=== PATIENT | female | born 1945 | race American Indian/Alaskan Native ===

== ENCOUNTER 2019-02-05 09:40 | Emergency (ER) | payer MEDICARE ==
[2019-02-05] MEDS ORDERED: NACL 0.9% 1000 ML 1,000 ML IV ONE (11:44)
[2019-02-05 12:10] LABS: Basophils # (Auto) 0.1 K/mm3 (0.0-0.1); Basophils % (Auto) 0.8 % (0.0-1.8); Eosinophils % (Auto) 0.2 % (0.0-4.3); Hematocrit 39.7 % (30.3-42.9); Hemoglobin 13.5 gm/dl (10.1-14.3); Lymphocytes # (Auto) 1.5 K/mm3 (1.2-5.4); Mean Corpuscular HGB Conc 34 % (30-34); Mean Corpuscular Volume 91 fl (79-97); Monocytes % (Auto) 14.6 % (0.0-7.3); Platelet Count 175 K/mm3 (140-440); Red Blood Count 4.35 M/mm3 (3.65-5.03); Red Cell Distribution Width 14.4 % (13.2-15.2)
[2019-02-05 12:24] LABS: INR 1.09 (0.87-1.13)
[2019-02-05 12:35] LABS: Creatine Kinase MB 1.5 ng/mL (0.0-4.0)
--- NOTE | 2019-02-05 12:40 | Emergency Department Report ---
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 Decreased appetite reported. Patient denies pain, dysuria, cough or cold symptoms, or fever. Recent difficulty holding her urine reported.. Patient presents with low blood pressure. Patient typically takes her blood pressure medicine at 10 AM every morning and did not have a dose prior to arrival. She denies cardiac history other than a heart murmur. Her doctors are [facility] affiliated. Severity scale (0 -10): 0 - Related Data Previous Rx's Medication Instructions Recorded Last Taken Type Nitrofurantoin [place]/M-Cryst 100 mg PO Q12HR #14 capsule 02/05/19 Unknown Rx [Macrobid CAP] Allergies Allergy/AdvReac Type Severity Reaction Status Date / Time Penicillins Allergy Unknown Verified 02/05/19 09:43 ED Review of Systems ROS: Stated complaint: WEAKNESS Other details as noted in HPI Comment: All other systems reviewed and negative ED Past Medical Hx - Past Medical History Previous Medical History?: Yes Hx Hypertension: Yes Hx CVA: Yes - Social History Smoking Status: Current Every Day Smoker Substance Use Type: None - Medications Home Medications: Home Medications Medication Instructions Recorded Confirmed Last Taken Type Nitrofurantoin [place]/M-Cryst 100 mg PO Q12HR #14 capsule 02/05/19 Unknown Rx [Macrobid CAP] ED Physical Exam - General Limitations: No Limitations - Other Other exam information: General: No limitations, patient is alert in no acute distress Head exam: Atraumatic, normocephalic Eyes exam: Normal appearance, pupils equal reactive to light, extraocular movements intact ENT: Moist mucous membrane Neck exam: Normal inspection, full range of motion, no meningismus nontender Respiratory exam: Clear to auscultation bilateral, no wheezes, rales, crackles Cardiovascular: Normal rate and rhythm Abdomen: Soft, nondistended, and nontender, with normal bowel sounds, no rebound, or guarding Extremity: Full range of motion normal inspection no deformity Back: Normal Inspection, full range of motion, no tenderness Neurologic: Alert, oriented x3, cranial nerves intact, no motor or sensory deficit, [id number] function intact Psychiatric: normal affect, normal mood Skin: Warm, dry, intact ED Course Vital Signs 02/05/19 02/05/19 10:30 14:14 Temperature 99.9 F H Pulse Rate 88 84 Respiratory 20 Rate Blood Pressure 91/60 Blood Pressure 123/60 [Right] O2 Sat by Pulse 96 Oximetry ED Medical Decision Making - Lab Data Result diagrams: 02/05/19 11:52 02/05/19 11:52 Lab Results 02/05/19 02/05/19 02/05/19 Range/Units 11:52 11:52 11:52 WBC 6.9 (4.5-11.0) K/mm3 RBC 4.35 (3.65-5.03) M/mm3 Hgb 13.5 (10.1-14.3) gm/dl Hct 39.7 (30.3-42.9) % MCV 91 (79-97) fl MCH 31 (28-32) pg MCHC 34 (30-34) % RDW 14.4 (13.2-15.2) % Plt Count 175 (140-440) K/mm3 Lymph % (Auto) 21.0 (13.4-35.0) % [place] % (Auto) 14.6 H (0.0-7.3) % Eos % (Auto) 0.2 (0.0-4.3) % Baso % (Auto) 0.8 (0.0-1.8) % Lymph # 1.5 (1.2-5.4) K/mm3 [place] # 1.0 H (0.0-0.8) K/mm3 Eos # 0.0 (0.0-0.4) K/mm3 Baso # 0.1 (0.0-0.1) K/mm3 Seg Neutrophils % 63.4 (40.0-70.0) % Seg Neutrophils # 4.4 (1.8-7.7) K/mm3 PT 14.8 (12.2-14.9) Sec. INR 1.09 (0.87-1.13) Sodium 135 L (137-145) mmol/L Potassium 3.7 (3.6-5.0) mmol/L Chloride 95.2 L (98-107) mmol/L Carbon Dioxide 25 (22-30) mmol/L Anion Gap 19 mmol/L BUN 12 (7-17) mg/dL Creatinine 0.6 L (0.7-1.2) mg/dL Estimated GFR > 60 ml/min BUN/Creatinine Ratio 20 % Glucose 93 (65-100) mg/dL Calcium 8.7 (8.4-10.2) mg/dL Magnesium 2.30 (1.7-2.3) mg/dL Total Bilirubin 0.70 (0.1-1.2) mg/dL AST 92 H (5-40) units/L ALT 69 H (7-56) units/L Alkaline Phosphatase 57 (35-129) units/L Total Creatine Kinase 238 H (30-135) units/L CK-MB (CK-2) 1.5 (0.0-4.0) ng/mL CK-MB (CK-2) Rel Index 0.6 (0-4) Troponin T < 0.010 (0.00-0.029) ng/mL Total Protein 7.1 (6.3-8.2) g/dL Albumin 3.6 L (3.9-5) g/dL Albumin/Globulin Ratio 1.0 % TSH (0.270-4.200) mlU/mL Free T4 (0.76-1.46) ng/dL Urine Color (Yellow) Urine Turbidity (Clear) Urine pH (5.0-7.0) Ur Specific [place] (1.003-1.030) Urine Protein (Negative) mg/dL Urine Glucose (UA) (Negative) mg/dL Urine Ketones (Negative) mg/dL Urine Blood (Negative) Urine Nitrite (Negative) Urine Bilirubin (Negative) Urine Urobilinogen (<2.0) mg/dL Ur Leukocyte Esterase (Negative) Urine WBC (Auto) (0.0-6.0) /HPF Urine RBC (Auto) (0.0-6.0) /HPF Urine Bacteria (Auto) (Negative) /HPF Urine Mucus /HPF 02/05/19 02/05/19 Range/Units 11:52 14:10 WBC (4.5-11.0) K/mm3 RBC (3.65-5.03) M/mm3 Hgb (10.1-14.3) gm/dl Hct (30.3-42.9) % MCV (79-97) fl MCH (28-32) pg MCHC (30-34) % RDW (13.2-15.2) % Plt Count (140-440) K/mm3 Lymph % (Auto) (13.4-35.0) % [place] % (Auto) (0.0-7.3) % Eos % (Auto) (0.0-4.3) % Baso % (Auto) (0.0-1.8) % Lymph # (1.2-5.4) K/mm3 [place] # (0.0-0.8) K/mm3 Eos # (0.0-0.4) K/mm3 Baso # (0.0-0.1) K/mm3 Seg Neutrophils % (40.0-70.0) % Seg Neutrophils # (1.8-7.7) K/mm3 PT (12.2-14.9) Sec. INR (0.87-1.13) Sodium (137-145) mmol/L Potassium (3.6-5.0) mmol/L Chloride (98-107) mmol/L Carbon Dioxide (22-30) mmol/L Anion Gap mmol/L BUN (7-17) mg/dL Creatinine (0.7-1.2) mg/dL Estimated GFR ml/min BUN/Creatinine Ratio % Glucose (65-100) mg/dL Calcium (8.4-10.2) mg/dL Magnesium (1.7-2.3) mg/dL Total Bilirubin (0.1-1.2) mg/dL AST (5-40) units/L ALT (7-56) units/L Alkaline Phosphatase (35-129) units/L Total Creatine Kinase (30-135) units/L CK-MB (CK-2) (0.0-4.0) ng/mL CK-MB (CK-2) Rel Index (0-4) Troponin T (0.00-0.029) ng/mL Total Protein (6.3-8.2) g/dL Albumin (3.9-5) g/dL Albumin/Globulin Ratio % TSH 0.956 (0.270-4.200) mlU/mL Free T4 1.31 (0.76-1.46) ng/dL Urine Color Yellow (Yellow) Urine Turbidity Slightly-cloudy (Clear) Urine pH 5.0 (5.0-7.0) Ur Specific [place] 1.013 (1.003-1.030) Urine Protein 30 mg/dl (Negative) mg/dL Urine Glucose (UA) Neg (Negative) mg/dL Urine Ketones Tr (Negative) mg/dL Urine Blood Mod (Negative) Urine Nitrite Pos (Negative) Urine Bilirubin Neg (Negative) Urine Urobilinogen 2.0 (<2.0) mg/dL Ur Leukocyte Esterase Sm (Negative) Urine WBC (Auto) 51.0 H (0.0-6.0) /HPF Urine RBC (Auto) 8.0 (0.0-6.0) /HPF Urine Bacteria (Auto) 4+ (Negative) /HPF Urine Mucus 3+ /HPF - EKG Data -: EKG Interpreted by Me EKG shows normal: sinus rhythm, axis (qrs 22), QRS complexes (qrsd 99), ST-T waves (no stemi/t inv) Rate: normal - Medical Decision Making Patient has a nonfocal neurologic exam. Patient has a UTI without signs of significant leukocytosis. Patient also reports decreased by mouth intake which might also be contributing to low blood pressure was corrected with 1 L normal saline. Patient feels better with each treatment. Received IV Levaquin in the ED. Will be discharged home on antibiotics and pending urine cultures. Patient able to ambulate in the ED - Differential Diagnosis UTI, thyroid, dehydration, infection, CVA Critical Care Time: No Critical care attestation.: If time is entered above; I have spent that time in minutes in the direct care of this critically ill patient, excluding procedure time. ED Disposition Clinical Impression: UTI (urinary tract infection), Weakness generalized Disposition: DC-01 TO HOME OR SELFCARE Is pt being admited?: No Does the pt Need Aspirin: No Condition: Stable Instructions: Urinary Tract Infection in Women (ED) Additional Instructions: Take the medication as prescribed. Follow up with your doctor or the clinic/doctor provided. Return if symptoms worsen as indicated by your discharge instructions Prescriptions: Nitrofurantoin [place]/M-Cryst [Macrobid CAP] 100 mg PO Q12HR #14 capsule Referrals: [facility] MD PATRICIO [Primary Care Provider] - 2-3 Days Time of Disposition: 16:27
[2019-02-05 12:42] LABS: Alanine Aminotransferase 69 units/L (7-56); Albumin 3.6 g/dL (3.9-5); BUN/Creatinine Ratio 20; Blood Urea Nitrogen 12 mg/dL (7-17); Calcium 8.7 mg/dL (8.4-10.2); Hemolysis Index 38
[2019-02-05 12:45] LABS: Free T4 (Free Thyroxine) 1.31 ng/dL (0.76-1.46)
[2019-02-05 14:41] LABS: Bacteria,Urine 4+ /HPF (Negative); Bilirubin,Urine NEG (Negative); Blood,Urine MOD (Negative); Color,Urine Yellow (Yellow); Mucus,Urine 3+ /HPF
[2019-02-05] MEDS ORDERED: LEVAQUIN 750MG/150ML 750 MG/150 ML BAG IV ONE (14:45)
[2019-02-05 16:53] VITALS: BP 135/61
== END 2019-02-05 16:55 | disposition home or self-care (01) ==
LOC: ED 09:40
DX: N39.0 Urinary tract infection, site not specified (principal)
CPT/HCPCS: 36415; 80053; 81001; 82550; 82553; 83735; 84439; 84443; 84484; 85025; 85610; 87086; 93005; 93010; 96365; 96366; 99284; J1956; J7030

== ENCOUNTER 2022-08-20 08:58 | Emergency (ER) | payer MEDICARE ==
--- NOTE | 2022-08-20 15:32 | Emergency Department Report ---
ED Female HPI - General Chief complaint: Urogenital-Female Stated complaint: HEMATURIA Time Seen by Provider: 08/20/22 15:28 Source: patient, EMS Mode of arrival: Stretcher Limitations: Physical Limitation - History of Present Illness Initial comments: Patient is a 77-year-old female presenting to ED with complaint of hematuria that she noticed this morning. Reports intermittent lower abdominal pain which is now resolved. She denies any fever, chills, vaginal bleeding or dysuria. She is not on blood thinners. Takes daily aspirin. - Related Data Previous Rx's Medication Instructions Recorded Last Taken Type Nitrofurantoin [place]/M-Cryst 100 mg PO Q12HR #14 capsule 02/05/19 Unknown Rx [Macrobid CAP] Allergies Allergy/AdvReac Type Severity Reaction Status Date / Time Penicillins Allergy Unknown Verified 08/20/22 09:02 ED Review of Systems ROS: Stated complaint: HEMATURIA Other details as noted in HPI Constitutional: denies: chills, fever Respiratory: denies: cough, shortness of breath, wheezing Cardiovascular: denies: chest pain, palpitations Gastrointestinal: denies: abdominal pain, nausea, diarrhea Genitourinary: hematuria. denies: dysuria, frequency, discharge Musculoskeletal: denies: back pain, joint swelling, arthralgia Skin: denies: rash, lesions Neurological: denies: headache, weakness, paresthesias Psychiatric: denies: anxiety, depression ED Past Medical Hx - Past Medical History Previous Medical History?: Yes Hx Hypertension: Yes Hx CVA: Yes - Social History Smoking Status: Current Every Day Smoker Substance Use Type: None - Medications Home Medications: Home Medications Medication Instructions Recorded Confirmed Last Taken Type Nitrofurantoin [place]/M-Cryst 100 mg PO Q12HR #14 capsule 02/05/19 Unknown Rx [Macrobid CAP] ED Physical Exam - General Limitations: Physical Limitation General appearance: alert, in no apparent distress - Head Head exam: Present: atraumatic, normocephalic - Respiratory Respiratory exam: Present: normal lung sounds bilaterally. Absent: respiratory distress - Cardiovascular Cardiovascular Exam: Present: regular rate, normal rhythm, normal heart sounds - GI/Abdominal GI/Abdominal exam: Present: soft. Absent: distended, tenderness - Rectal Rectal exam: Present: deferred - Extremities Exam Extremities exam: Present: normal inspection. Absent: tenderness - Neurological Exam Neurological exam: Present: alert, oriented X3 - Psychiatric Psychiatric exam: Present: normal affect, normal mood - Skin Skin exam: Present: warm, dry, intact, normal color ED Course Vital Signs 08/20/22 08/20/22 08/20/22 09:02 11:33 11:45 Temperature 98 F 98.4 F Pulse Rate 75 71 68 Respiratory 14 11 L 17 Rate Blood Pressure 134/75 126/84 Blood Pressure 135/75 [Left] O2 Sat by Pulse 99 97 99 Oximetry 08/20/22 08/20/22 08/20/22 12:00 12:16 12:30 Temperature Pulse Rate 69 69 78 Respiratory 16 13 21 Rate Blood Pressure 134/75 135/83 126/84 Blood Pressure [Left] O2 Sat by Pulse 98 97 98 Oximetry 08/20/22 08/20/22 08/20/22 12:45 13:01 13:15 Temperature Pulse Rate 69 68 71 Respiratory 13 13 18 Rate Blood Pressure 133/84 135/83 128/83 Blood Pressure [Left] O2 Sat by Pulse 98 98 97 Oximetry 08/20/22 08/20/22 08/20/22 13:31 13:45 14:01 Temperature Pulse Rate 69 72 73 Respiratory 17 17 17 Rate Blood Pressure 128/83 121/82 121/82 Blood Pressure [Left] O2 Sat by Pulse 97 99 95 Oximetry 08/20/22 08/20/22 08/20/22 14:15 14:30 14:45 Temperature Pulse Rate 73 72 73 Respiratory 17 11 L 16 Rate Blood Pressure 126/84 121/82 134/86 Blood Pressure [Left] O2 Sat by Pulse 97 98 97 Oximetry 08/20/22 08/20/22 08/20/22 15:00 15:15 15:31 Temperature Pulse Rate 81 74 73 Respiratory 18 17 14 Rate Blood Pressure 126/84 126/84 126/84 Blood Pressure [Left] O2 Sat by Pulse 97 98 97 Oximetry 08/20/22 08/20/22 08/20/22 15:45 16:01 16:15 Temperature Pulse Rate 73 79 78 Respiratory 14 16 22 Rate Blood Pressure 134/86 134/86 134/86 Blood Pressure [Left] O2 Sat by Pulse 98 97 96 Oximetry 08/20/22 08/20/22 08/20/22 16:31 16:45 17:01 Temperature Pulse Rate 74 87 78 Respiratory 14 15 12 Rate Blood Pressure 134/86 134/86 134/86 Blood Pressure [Left] O2 Sat by Pulse 97 92 90 Oximetry 08/20/22 08/20/22 08/20/22 17:15 17:31 17:45 Temperature Pulse Rate 82 80 75 Respiratory 15 16 15 Rate Blood Pressure 143/77 143/77 133/76 Blood Pressure [Left] O2 Sat by Pulse 97 95 97 Oximetry 08/20/22 08/20/22 18:01 18:15 Temperature Pulse Rate 78 78 Respiratory 17 16 Rate Blood Pressure 133/76 142/79 Blood Pressure [Left] O2 Sat by Pulse 97 94 Oximetry ED Medical Decision Making - Lab Data Result diagrams: 08/20/22 16:52 08/20/22 16:52 - Medical Decision Making CT abdomen and pelvis shows no acute process for or focal abnormality to explain hematuria. UA shows numerous RBCs without signs of infection. CBC and CMP grossly unremarkable except for glucose of 55. Patient given IV dextrose. Repeat fingerstick 96. Patient given a meal. Fingerstick was checked an hour later and is 102. Patient is stable for discharge home with PCP follow-up. Critical care attestation.: If time is entered above; I have spent that time in minutes in the direct care of this critically ill patient, excluding procedure time. ED Disposition Clinical Impression: Hematuria, Hypoglycemia Disposition: 01 HOME / SELF CARE / HOMELESS Is pt being admited?: No Condition: Stable Instructions: Hypoglycemia, Hematuria, Adult Additional Instructions: Please follow-up with your regular doctor within 1 week. You may return if your symptoms worsen. Time of Disposition: 22:32
[2022-08-20 17:36] LABS: Bacteria,Urine 1+ /HPF (Negative); Mucus,Urine FEW /HPF
[2022-08-20 17:46] LABS: Color,Urine Straw (Yellow)
[2022-08-20 17:51] LABS: RBC,Urine > 182.0 /HPF (0.0-6.0)
[2022-08-20 17:51] LABS: Blood Urea Nitrogen 10 mg/dL (7-17); Calcium 9.7 mg/dL (8.4-10.2); Hemolysis Index 18
[2022-08-20 17:54] LABS: BUN/Creatinine Ratio 33
[2022-08-20 17:58] LABS: Basophils # (Auto) 0.1 K/mm3 (0.0-0.1); Basophils % (Auto) 1.2 % (0.0-1.8); Eosinophils # (Auto) 0.1 K/mm3 (0.0-0.4); Eosinophils % (Auto) 1.1 % (0.0-4.3); Hematocrit 49.7 % (30.3-42.9); Lymphocytes # (Auto) 3.4 K/mm3 (1.2-5.4); Lymphocytes % (Auto) 43.4 % (13.4-35.0); Mean Corpuscular HGB Conc 32 % (30-34); Mean Corpuscular Volume 97 fl (79-97); Monocytes # (Auto) 0.5 K/mm3 (0.0-0.8); Monocytes % (Auto) 6.4 % (0.0-7.3); Platelet Count 285 K/mm3 (140-440); Red Blood Count 5.14 M/mm3 (3.65-5.03); Red Cell Distribution Width 17.8 % (13.2-15.2)
[2022-08-20] MEDS ORDERED: DEXTROSE 50% IN WATER (25GM) 50 ML VIAL IV ONE (18:19)
[2022-08-20] MEDS ORDERED: DEXTROSE 50% IN WATER (25GM) 50 ML SYRINGE IV ONE (18:19)
[2022-08-20 18:24] VITALS: BP 142/79
--- NOTE | 2022-08-20 19:03 | Cat Scan Report ---
CT ABDOMEN AND PELVIS WITH CONTRAST INDICATION / CLINICAL INFORMATION: hematuria. TECHNIQUE: Axial CT images were obtained through the abdomen and pelvis after [address] scans at this location are performed using CT dose reduction for ALARA by means of automated exposur e control. COMPARISON: None available. FINDINGS: LOWER CHEST: No significant abnormality. LIVER: No significant abnormality. GALLBLADDER: Large stellate calcified stone. No acute inflammatory changes by CT. BILE DUCTS: No significant abnormality. PANCREAS: No significant abnormality. SPLEEN: No significant abnormality. ADRENALS: No significant abnormality. RIGHT KIDNEY / URETER: Small cysts. LEFT KIDNEY / URETER: Small cyst. STOMACH / SMALL BOWEL: No acute abnormality. 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 In the absence of obstruction this is likel y incidental. COLON: Diverticulosis without acute inflammation. APPENDIX: No significant abnormality. PERITONEUM: No free fluid. No free air. No fluid collection. LYMPH NODES: No significant adenopathy. AORTA / ARTERIES: Advanced atherosclerosis. IVC / VEINS: Engorgement and tortuosity of the parametrial venous vasculature. URINARY BLADDER: No significant abnormality. REPRODUCTIVE ORGANS: Uterus enlargement and nodularity. Possible left adnexal lesion versus a subsero salome fibroid. ADDITIONAL FINDINGS: None. SKELETAL SYSTEM: Mild/moderate superior endplate compression fracture L2 with fracture cleft supporti ng a potential subacute time course. No retropulsion. IMPRESSION: 1. No acute process or focal abnormality to explain hematuria. 2. Parametrial vascular engorgement supportive of possible pelvic congestion syndrome in the appropri ate clinical setting superimposed upon suspected fibroids and a potential left adnexal nodule. Gyneco logic and pelvic sonographic follow-up recommended. 3. Mild/moderate superior endplate compression fracture L2 with features supporting a potential subac becki time course. No retropulsion. Correlate clinically. 4. Ancillary findings as above. Signer Name: Padma Coto MD Signed: 08/20/2022 6:58 PM Workstation Name: [email or web address]
== END 2022-08-21 00:50 | disposition home or self-care (01) ==
LOC: ED 08:58
DX: R31.9 Hematuria, unspecified (principal); E16.2 Hypoglycemia, unspecified; F17.200 Nicotine dependence, unspecified, uncomplicated; I10 Essential (primary) hypertension
CPT/HCPCS: 36415; 74177; 80048; 81001; 85025; 96374; 99284; J3490; Q9967